=== PATIENT | male | born 1990 | race Hispanic/Latino ===

== ENCOUNTER 2016-12-29 09:10 | Emergency (ER) | payer OTHER ==
[~2016-12-29] VITALS: Ht 175.3 cm; Wt 181.0 kg
[2016-12-29 09:53] LABS: URINE BILIRUBIN - DIPSTICK NEGATIVE (NEGATIVE); URINE BLOOD DIPSTICK NEGATIVE (NEGATIVE); URINE CLARITY CLEAR; URINE COLOR YELLOW; URINE GLUCOSE - DIPSTICK NEGATIVE (NEGATIVE); URINE KETONE NEGATIVE (NEGATIVE); URINE LEUK ESTERASE NEGATIVE (NEGATIVE); URINE NITRITE - DIPSTICK NEGATIVE (Negative); URINE PROTEIN - DIPSTICK NEGATIVE (NEG-TRACE); URINE SPECIFIC GRAVITY 1.025
[2016-12-29 09:54] LABS: HEMATOCRIT 43.5 % (39.0-50.0); HEMOGLOBIN 14.4 g/dl (14.0-18.0); IMMATURE GRANULOCYTES 0.4 % (0.0-1.0); MEAN CELL VOLUME 83.2 fL CALC (80.0-100.0); MEAN CORPUSCULAR HGB 27.5 pG CALC (26.0-32.0); MEAN CORPUSCULAR HGB CONC 33.1 g/L CALC (32.0-36.0); NEUT# 9.16 thou/uL (1.82-7.42); RED BLOOD COUNT 5.23 mill/uL (4.70-6.10); RED CELL DISTRI WIDTH 12.7 % (11.5-15.5)
[2016-12-29 10:06] LABS: ALBUMIN 4.1 g/dL (3.2-5.0); ALKALINE PHOSPHATASE 115 u/l (38-126); AMYLASE 69 u/l (30-110); ANION GAP 16 (6-22 (CALC)); BILIRUBIN, TOTAL 0.5 mg/dL (0.0-1.4); BUN 17 mg/dL (9-20); BUN/CREATININE RATIO 17 (12-20 (CALC)); CARBON DIOXIDE 23 mmol/l (22-30); CHLORIDE 104 mmol/l (95-108); GFR > 60 ML/MIN (>=60 (CALC)); GFR FOR AFR.AMER. > 60 ML/MIN (>=60 (CALC)); GLUCOSE 117 mg/dL (75-110); LIPASE 46 u/l (23-300); POTASSIUM 3.7 mmol/l (3.5-5.1); SGOT/AST 19 u/l (17-59); SGPT/ALT 35 u/l (21-72); SODIUM 140 mmol/l (137-146); TOTAL PROTEIN 8.1 g/dL (6.3-8.2)
[2016-12-29 12:27] VITALS: BP 199/111
== END 2016-12-29 12:30 | disposition home or self-care (01) | DRG 392 ==
LOC: ED 09:10
PROVIDERS: Emergency Medicine
DX: R10.11 Right upper quadrant pain (principal); Z98.84 Bariatric surgery status

== ENCOUNTER 2017-05-20 18:11 | Emergency (ER) | payer OTHER ==
[~2017-05-20] VITALS: Ht 175.3 cm; Wt 175.0 kg
[2017-05-20 19:20] VITALS: BP 161/84
== END 2017-05-20 19:20 | disposition home or self-care (01) | DRG 951 ==
LOC: ED 18:11
DX: Z20.818 Contact with and (suspected) exposure to other bacterial communicable diseases (principal)

== ENCOUNTER → 2018-11-23 | Outpatient (REF) | END | disposition home or self-care (01) | DRG 951 | LOC: PAGE 09:00 | PROVIDERS: ATTEND Nurse Practitioner Family | DX: Z23 Encounter for immunization (principal) ==

== ENCOUNTER 2024-08-23 00:17 | Emergency (ER) | payer OTHER ==
[~2024-08-23] VITALS: Ht 175.3 cm; Wt 245.0 kg
[~2024-08-23 00:17] MED LIST: ALBUTEROL SUL0.083 % IN; AZITHROMYCIN500 MG PO; MEDDOSEPAK PO; MOUNJARO5 MG SC; MOUNJARO7.5 MG SC; PAXLOVID PO; WEGOVY1 MG SC
[2024-08-23] MEDS ORDERED: ALBUTEROL SULFATE 2.5 MG VIAL IN ONE (00:40)
[2024-08-23] MEDS ORDERED: IPRATROPIUM-Albuterol 0.5MG-2.5MG/3 ML NEB ONE (00:40)
[2024-08-23] MEDS ORDERED: DEXAMETHASONE SOD. PHOSPHATE 10 MG/ML VIAL IV ONE (00:40)
[2024-08-23 00:48] LABS: BASO% 0.2 % (0-3); EOS% 0.1 % (0-8); HEMATOCRIT 44.1 % (39.0-50.0); HEMOGLOBIN 14.1 g/dl (14.0-18.0); IMMATURE GRANULOCYTES 1.5 % (0.0-5.0); LYMPH% 12.4 % (15-41); MEAN CELL VOLUME 82.1 fL CALC (80.0-100.0); MEAN CORPUSCULAR HGB 26.3 pG CALC (26.0-32.0); MONO% 15.9 % (2-13); NEUT# 8.68 thou/uL (1.82-7.42); NEUT% 69.9 % (42-76); RED BLOOD COUNT 5.37 mill/uL (4.70-6.10); RED CELL DISTRI WIDTH 14.2 % (11.5-15.5)
[2024-08-23] MEDS ORDERED: ALBUTEROL SUL0.083 % IN (00:49)
[2024-08-23 01:07] LABS: ALBUMIN 4.1 g/dL (3.2-5.0); BILIRUBIN, TOTAL 0.6 mg/dL (0.2-1.3); CREATININE 0.8 mg/dL (0.7-1.3); TOTAL PROTEIN 7.6 g/dL (6.3-8.2)
[2024-08-23 01:16] LABS: PROTHROMBIN TIME 10.4 SECONDS (9.0-12.5)
[2024-08-23 01:18] LABS: D-DIMER 0.31 mg/L (0.19-0.60)
[2024-08-23] MEDS ORDERED: PREDNISONE50 MG PO (02:54)
[2024-08-23] MEDS ORDERED: FLUTICASONE/SALMETEROL 250 MCG/50 MCG PER DOSE INH IN ONE (02:55)
[2024-08-23] MEDS ORDERED: predniSONE 20 MG/TAB PO ONE (02:55)
[2024-08-23 03:21] VITALS: BP 126/80
== END 2024-08-23 03:21 | disposition home or self-care (01) | DRG 203 ==
LOC: ED 00:17
PROVIDERS: Family Medicine
DX: J45.901 Unspecified asthma with (acute) exacerbation (principal); J20.8 Acute bronchitis due to other specified organisms; B97.81 Human metapneumovirus as the cause of diseases classified elsewhere; Z20.822 Contact with and (suspected) exposure to COVID-19
CPT/HCPCS: J1100